=== PATIENT | male | born 1955 | race Two or more races ===

== ENCOUNTER → 2020-01-29 | Outpatient (CLI) | payer MEDICARE, OTHER ==
[2020-01-23 12:05] LABS: BASOPHILS % 0.1 % (0.0-1.0); EOSINOPHILS % 0.1 % (0.0-6.0); HEMATOCRIT 39.2 % (38.2-49.6); HEMOGLOBIN 12.9 g/dL (14.0-18.0); LYMPHOCYTES # (AUTO) 1.4 (1.0-3.2); MEAN CORPUSCULAR HEMOGLOBIN 25.1 pg (28-32); MEAN CORPUSCULAR HGB CONC 32.9 g/dL (31-35); MEAN CORPUSCULAR VOLUME 76.4 fL (81-99); MONOCYTES # (AUTO) 0.8 (0.2-0.8); MONOCYTES % 5.2 % (4.4-11.3); NEUTROPHILS % 84.7 % (38.7-80.0); PLATELET COUNT 347 x10e3/uL (140-360); RED BLOOD COUNT 5.13 x10e6/uL (4.3-5.7); RED CELL DISTRIBUTION WIDTH 15.1 % (11.7-14.4)
[2020-01-23 12:26] LABS: ANION GAP 18.4 mmol/L (8-16); CALCIUM 9.2 mg/dL (8.4-10.2); CREATININE, SERUM 2.89 mg/dL (0.72-1.25); POTASSIUM 5.4 mmol/L (3.5-5.1)
[2020-01-23 12:42] LABS: INR 1.01; PROTHROMBIN TIME 13.8 seconds (11.9-14.5)
[2020-01-23 12:43] LABS: PARTIAL THROMBOPLASTIN TIME 30.1 seconds (23.8-35.5)
--- NOTE | 2020-01-23 13:12 | Diagnostic Imaging Report ---
EXAMINATION: CHEST 2 VIEWS INDICATION: Pre-operative COMPARISON: None FINDINGS: LINES/TUBES:Left chest pacer LUNGS:The lungs are well-inflated. No focal consolidation or pulmonary edema. PLEURA:No pleural effusion or pneumothorax. MEDIASTINUM:The cardiomediastinal silhouette appears normal in size and shape. BONES/SOFT TISSUES:No acute osseous injury. Degenerative changes of the visualized spine. ABDOMEN:No free air under the diaphragm. IMPRESSION: No focal pneumonia or pulmonary edema. Signed by: Rachel Miner MD on 01/23/2020 1:09 PM
[~2020-01-29] MED LIST: AMITRIPTYLINE H10 MG PO; AMLODIPINE BESY10 MG PO; ATORVASTATIN CA10 MG PO; BUSPIRONE HCL5 MG PO; CALCITRIOL0.25 MCG PO; CARVEDILOL12.5 MG PO; CYCLOBENZAPRINE10 MG PO; FUROSEMIDE40 MG PO; GABAPENTIN300 MG PO; HYDROXYZINE HCL25 MG PO; ISOSORBIDE DINI20 MG PO; LACTULOSE20 GM/30 M PO; MYRBETRIQ50 MG PO; NATEGLINIDE60 MG PO; NITROGLYCERIN0.4 MG SL; OXYBUTYNIN CHLOR5 MG PO; SODIUM BICARBO650 MG PO; TIZANIDINE HCL2 M1 PO; TRULANCE3 MG PO; ULTRAM50 MG PO
== END ==
LOC: RAD 05:00 → EDSTATUS 08:30
PROVIDERS: ATTEND Orthopaedic Surgery
DX: Z01.818 Encounter for other preprocedural examination (principal); G56.02 Carpal tunnel syndrome, left upper limb; G56.22 Lesion of ulnar nerve, left upper limb; M25.532 Pain in left wrist; M25.522 Pain in left elbow; Z53.8 Procedure and treatment not carried out for other reasons; Z11.59 Encounter for screening for other viral diseases
CPT/HCPCS: 36415; 71046; 80048; 85025; 85610; 85730; 93005; U0002